=== PATIENT | female | born 1960 | race Two or more races ===

== ENCOUNTER 2016-07-25 11:55 | Emergency (ER) | payer OTHER ==
[~2016-07-25] VITALS: Ht 162.6 cm; Wt 72.7 kg
[2016-07-25] MEDS ORDERED: MORPHINE SULFATE 4 MG/ML, 1ML IVPush PRN (13:00)
[2016-07-25] MEDS ORDERED: SODIUM CHLORIDE 0.9% 1,000ML IVBOLUS ONE (13:00)
[2016-07-25] MEDS ORDERED: ONDANSETRON 2MG/ML, 2ML IVPush ONE (13:00)
[2016-07-25] MEDS ORDERED: SODIUM CHLORIDE FLUSH 10ML SYR IVF ONE (13:00)
[2016-07-25] MEDS ORDERED: MORPHINE SULFATE 4 MG/ML, 1ML ONE (13:08)
[2016-07-25] MEDS ORDERED: ONDANSETRON 2MG/ML, 2ML ONE (13:08)
[2016-07-25 13:30] LABS: HEMOGLOBIN 11.9 g/dL (11.7-16.4)
[2016-07-25 13:44] LABS: BLOOD UREA NITROGEN 8 mg/dL (7-18)
[2016-07-25 13:47] LABS: ASPARTATE AMINO TRANSFERASE 22 U/L (15-37)
[2016-07-25] MEDS ORDERED: OMNIPAQUE 350 MG/ML, 100ML BOTTLE ONE (14:14)
[2016-07-25 16:51] VITALS: BP 118/65
== END 2016-07-25 16:53 | disposition home or self-care (01) ==
LOC: ED 16:44
DX: N39.0 Urinary tract infection, site not specified (principal); C25.9 Malignant neoplasm of pancreas, unspecified; K21.9 Gastro-esophageal reflux disease without esophagitis; Z90.710 Acquired absence of both cervix and uterus; Z98.890 Other specified postprocedural states
CPT/HCPCS: 36415; 74177; 80053; 81001; 85025; 87077; 87086; 96361; 96374; 96375; 99285; J2405; J7030; Q9967; 87186

== ENCOUNTER → 2016-08-23 | Outpatient (CLI) | payer OTHER | END | disposition home or self-care (01) | LOC: PETCFH 07:40 | PROVIDERS: ATTEND Internal Medicine Hematology & Oncology | DX: N83.299 Other ovarian cyst, unspecified side (principal); Z85.07 Personal history of malignant neoplasm of pancreas; Z98.890 Other specified postprocedural states | CPT/HCPCS: 78815; A9552 ==

== ENCOUNTER 2016-08-28 05:50 | Day surgery (SDC) | payer OTHER ==
[~2016-08-28] VITALS: Ht 162.6 cm; Wt 65.0 kg
[2016-08-28 07:08] VITALS: BP 128/78
[2016-08-28] MEDS ORDERED: CEFD300C37 PO (07:12)
[2016-08-28] MEDS ORDERED: ENOX100S5 SQ (07:12)
[2016-08-28] MEDS ORDERED: SODIUM CHLORIDE 0.9% 1,000 ML IV SCH (07:12)
[2016-08-28] MEDS ORDERED: IBUP200C PO (07:12)
[2016-08-28] MEDS ORDERED: HYDR-3144 PO (07:12)
[2016-08-28] MEDS ORDERED: LIPA1CAP61 PO (07:12)
[2016-08-28] MEDS ORDERED: LIDOCAINE 1%, 20ML ONE (07:49)
[2016-08-28] MEDS ORDERED: MIDAZOLAM 1 MG/ML, 5ML ONE (07:56)
[2016-08-28] MEDS ORDERED: FENTANYL PF 100 MCG/2ML ONE (07:57)
[2016-08-28] MEDS ORDERED: HYDROcodone/APAP 10/325 MG TABLET ONE (11:47)
[2016-08-28] MEDS ORDERED: HYDROcodone/APAP 10/325 MG TABLET PO PRN (12:00)
== END 2016-08-28 12:45 | disposition home or self-care (01) ==
LOC: OUT 05:50
PROVIDERS: ATTEND Internal Medicine Hematology & Oncology
DX: C78.7 Secondary malignant neoplasm of liver and intrahepatic bile duct (principal); Z85.07 Personal history of malignant neoplasm of pancreas
CPT/HCPCS: 36415; 47000; 76942; 85610; 88307; 93005; 99156; 99157; J2250; J3010; J3490; J7030

== ENCOUNTER 2016-10-31 10:09 | Day surgery (SDC) | payer OTHER ==
[~2016-10-31] VITALS: Ht 162.6 cm; Wt 62.0 kg
[~2016-10-31 10:09] MED LIST: CEFD300C37 PO; ENOX100S5 SQ; HYDR-3144 PO; IBUP200C PO; LIPA1CAP61 PO
[2016-10-31] MEDS ORDERED: LACTATED RINGERS 1,000 ML IV SCH (10:43)
[2016-10-31] MEDS ORDERED: ENOX40SY4 SQ (10:59)
[2016-10-31] MEDS ORDERED: LIDOCAINE 1%, 2ML SQ PRN (11:00)
[2016-10-31] MEDS ORDERED: PLEASE ENTER HEIGHT AND WEIGHT MC SCH (11:00)
[2016-10-31] MEDS ORDERED: ONDA-39 PO (11:01)
[2016-10-31] MEDS ORDERED: LORA0.5T PO (11:01)
[2016-10-31 11:04] VITALS: BP 131/87
[2016-10-31] MEDS ORDERED: HYDROmorphone 2 MG/ML, 1ML ONE (11:28)
[2016-10-31] MEDS ORDERED: HYDROmorphone 2 MG/ML, 1ML IVPush ONE (11:30)
[2016-10-31] MEDS ORDERED: LABETALOL 5MG/ML, 20ML IV PRN (12:30)
[2016-10-31] MEDS ORDERED: OXYcodone 5 MG/5 ML ORAL.SOL UDC PO PRN (12:30)
[2016-10-31] MEDS ORDERED: HYDROmorphone 1 MG/ML, 1ML IV PRN (12:30)
[2016-10-31] MEDS ORDERED: ALBUTEROL SULFATE 2.5 MG/3 ML NPPB PRN (12:30)
[2016-10-31] MEDS ORDERED: hydrALAzine 20 MG/ML, 1ML IV PRN (12:30)
[2016-10-31] MEDS ORDERED: ONDANSETRON 2MG/ML, 2ML IVPush PRN (12:30)
[2016-10-31] MEDS ORDERED: MIDAZOLAM 1 MG/ML, 2ML IV PRN (12:30)
[2016-10-31] MEDS ORDERED: MEPERIDINE/PF 25MG/0.5ML IVPush PRN (12:30)
[2016-10-31] MEDS ORDERED: PROMETHAZINE 25 MG/ML, 1ML IV PRN (12:30)
[2016-10-31] MEDS ORDERED: FENTANYL PF 100 MCG/2ML IV PRN (12:30)
[2016-10-31] MEDS ORDERED: FENTANYL PF 100 MCG/2ML ONE (13:25)
[2016-10-31] MEDS ORDERED: OXYcodone 5 MG/5 ML ORAL.SOL UDC ONE (13:26)
[2016-10-31] MEDS ORDERED: PROPOFOL 10 MG/ML, 20ML ONE (16:05)
[2016-10-31] MEDS ORDERED: DEXAMETHASONE 4 MG/ML, 1ML ONE (16:05)
[2016-10-31] MEDS ORDERED: ONDANSETRON 2MG/ML, 2ML ONE (16:05)
== END 2016-10-31 14:55 ==
LOC: OUT 10:09
PROVIDERS: ATTEND Internal Medicine Geriatric Medicine
DX: C25.9 Malignant neoplasm of pancreas, unspecified (principal); Z88.1 Allergy status to other antibiotic agents; Z88.5 Allergy status to narcotic agent; Z88.0 Allergy status to penicillin; Z98.890 Other specified postprocedural states
CPT/HCPCS: 43238; J1100; J1170; J2405; J2704; J3010; J3490; J7120